=== PATIENT | male | born 1995 ===

== ENCOUNTER 2022-01-11 04:04 | Emergency (ER) | payer SELFPAY ==
[2022-01-11 04:15] VITALS: BP 104/46
--- NOTE | 2022-01-11 04:58 | XRay Report ---
RIGHT KNEE 3 VIEW(S) INDICATION / CLINICAL INFORMATION: INJURY COMPARISON: None available. FINDINGS: BONES / JOINT(S): No acute fracture or subluxation. No significant arthritis. No significant joint ef fusion. SOFT TISSUES: Mild stranding of Hoffa's fat pad and mild prepatellar soft tissue swelling. ADDITIONAL FINDINGS: None. IMPRESSION: Nonspecific soft tissue swelling of the right knee. No acute osseous abnormality. Signer Name: Harry Olmstead MD Signed: 01/11/2022 4:54 AM Workstation Name: [id number]
== END 2022-01-11 19:00 | disposition left against medical advice (07) ==
LOC: ED 04:04
DX: S89.90XA Unspecified injury of unspecified lower leg, initial encounter (principal); Z53.21 Procedure and treatment not carried out due to patient leaving prior to being seen by health care provider; X58.XXXA Exposure to other specified factors, initial encounter; Y93.89 Activity, other specified; Y92.89 Other specified places as the place of occurrence of the external cause; Y99.8 Other external cause status